=== PATIENT | male | born 1955 | race Hispanic/Latino ===

== ENCOUNTER 2016-12-10 22:52 | Emergency (ER) | payer BC ==
[2016-12-10 23:08] VITALS: BP 124/65; PULSE 70; RESP 14; TEMP 97.9; O2SAT 98
--- NOTE | 2016-12-11 00:22 | C.PDOC ---
History Of Present Illness 61 year old patient presents to the ED complaining of right wrist pain after a fall prior to arrival. Patient states he fell backwards while roller skating. Patient denies head trauma, fever, numbness, or weakness. He is right hand dominant. Time Seen by Provider: 12/10/16 23:10 Chief Complaint (Nursing): Upper Extremity Problem/Injury History Per: Patient History/Exam Limitations: no limitations Onset/Duration Of Symptoms: Hrs (prior to arrival) Current Symptoms Are (Timing): Still Present Quality: "Pain" Severity: Moderate Pain Scale Rating Of: 4 Recent travel outside of the [place]: No Past Medical History Reviewed: Historical Data, Nursing Documentation, Vital Signs Vital Signs: Last Vital Signs Temp 97.9 F 12/10/16 23:04 Pulse 70 12/10/16 23:04 Resp 14 12/10/16 23:04 BP 124/65 12/10/16 23:04 Pulse Ox 98 12/11/16 01:13 Family History: States: Unknown Family Hx - Social History Hx Alcohol Use: No Hx Substance Use: No - Immunization History Hx Tetanus Toxoid Vaccination: No Hx Influenza Vaccination: No Hx Pneumococcal Vaccination: No Review Of Systems Except As Marked, All Systems Reviewed And Found Negative. Constitutional: Negative for: Fever, Other (head trauma) Musculoskeletal: Positive for: Other (right wrist pain) Neurological: Negative for: Weakness, Numbness Physical Exam - Physical Exam Appears: Non-toxic, No Acute Distress Skin: Warm, Dry Head: Atraumatic, Normacephalic Eye(s): bilateral: PERRL, EOMI Neck: Normal ROM, Supple Chest: Symmetrical Cardiovascular: Rhythm Regular Respiratory: No Accessory Muscle Use Back: Normal Inspection Extremity: Normal ROM, No Deformity, Other (right wrist: tenderness and swelling to the dorsal aspect; no snuff box tenderness; normal pulse; good strength; no change in sensation; <2 seconds capillary refill; no deformities) Neurological/Psych: Oriented x3, Normal Motor, Normal Sensation ED Course And Treatment O2 Sat by Pulse Oximetry: 98 (room air) Pulse Ox Interpretation: Normal - Other Rad right wrist X-Ray: Interpreted by Me, Viewed By Me Interpretation: no fracture or dislocation Progress Note: Plan: -Motrin. -Right wrist x-ray. -Reassess and disposition. Wrist splint was applied by the RN. Upon reassessment, patient is resting comfortably, the pain is improving, and is in no acute distress. Patient was instructed to follow up with orthopedics for further evaluation. Return if symptoms worsen. Disposition - Disposition Referrals: Kb Pool III, MD [Staff Provider] - Disposition: HOME/ ROUTINE Disposition Time: 00:21 Condition: STABLE Additional Instructions: Rest, ice and elevate the area. Follow up with bone doctor in 1-2 days for re- evaluation. Return to ER if symptoms persist or worsen. Prescriptions: Ibuprofen [Motrin] 600 mg PO Q6 PRN #20 tab PRN Reason: Pain, Mild (1-3) Instructions: Wrist Injury (ED) - Clinical Impression Clinical Impression: Wrist strain - PA / [employer] / Resident Statement MD/DO has reviewed & agrees with the documentation as recorded. - Scribe Statement The provider has reviewed the documentation as recorded by the Scribe Antoinette Olson All medical record entries made by the Scribe were at my direction and personally dictated by me. I have reviewed the chart and agree that the record accurately reflects my personal performance of the history, physical exam, medical decision making, and the department course for this patient. I have also personally directed, reviewed, and agree with the discharge instructions and disposition.
--- NOTE | 2016-12-11 08:36 | RAD ---
PROCEDURE: Right Wrist Radiographs. HISTORY: trauma COMPARISON: None available. FINDINGS: BONES: No acute displaced fracture. JOINTS: No dislocation. SOFT TISSUES: Unremarkable. No evidence of radiopaque foreign body OTHER FINDINGS: None. IMPRESSION: No acute displaced fracture, dislocation, or significant joint effusion identified. If symptoms persist, or if there is continued clinical concern, x-ray follow-up in 7-10 days should be considered.
== END 2016-12-11 00:30 | disposition home or self-care (01) ==
LOC: C.ER 22:52
DX: S66.911A Strain of unspecified muscle, fascia and tendon at wrist and hand level, right hand, initial encounter (principal); V00.121A Fall from non-in-line roller-skates, initial encounter; Y93.51 Activity, roller skating (inline) and skateboarding